=== PATIENT | male | born 1980 | race Hispanic/Latino ===

== ENCOUNTER 2023-10-02 22:14 | Emergency (ER) | payer OTHER, SELFPAY | END 2023-10-03 01:45 | disposition home or self-care (01) | LOC: CSHERS 22:14 | DX: S82.091A Other fracture of right patella, initial encounter for closed fracture (principal); W19.XXXA Unspecified fall, initial encounter; Y93.68 Activity, volleyball (beach) (court); Z55.6 Problems related to health literacy ==